=== PATIENT | male | born 1980 | race Caucasian/White ===

== ENCOUNTER 2017-12-04 21:05 | Emergency (ER) | payer OTHER, SELFPAY ==
[2017-12-04 21:05] VITALS: BP 154/93; PULSE 94; RESP 18; TEMP 35.8; O2SAT 99; BMI 33.2
--- NOTE | 2017-12-04 22:09 | ED.DCSUM_ITS ---
- ER Visit Summary Date of Service: 12/04/17 Chief Complaint: Neck pain History of Present Illness: The patient is a 37 M presenting for evaluation secondary neck pain. Patient reports that he has been dealing with a respiratory illness. He reports that over the course last 2 weeks he had been dealing with cough and mild sore throat. Patient reports that he was seen in urgent care was given a Z-Roddy and initially got better. He started to develop some left-sided neck pain however and went back to urgent care and they gave him a prescription for another antibiotic. Patient states that the neck pain is present when he palpates and during the day, but seems to get completely better when he takes Advil. He denies any sore throat or difficulty swallowing. Denies any cough nausea vomiting diarrhea chills night sweats weight loss. He does endorse that it gives him somewhat of a headache. He denies any presence of rashes. Review of systems otherwise negative. Physical Examination: Vital signs are within normal limits, patient is afebrile. General: Patient is well-nourished well-developed and in no acute distress. Head: Normocephalic, atraumatic Eyes: Pupils equal round and reactive bilaterally, extra occular motion intact bialterally ENT: Moist mucous membranes, uvula somewhat swollen but no evidence of asymmetry or posterior fullness or exudates. Neck: Supple, no lymphadenopathy, no JVD, no meningismus, there is tenderness in the posterior chain on the left side with out palpable lymph nodes CVS: Heart regular rate and rhythm, no murmurs, rubs or gallops, radial pulses 2+ bilaterally Resp: Respirations nondistressed, lung sounds clear bilaterally Abdomen: Soft, nontender, nondistended, no palpable masses, normal bowel sounds Back: Nontender Extremities: Nontender, atraumatic, active full range of motion, no peripheral edema Skin: warm, no rashes, no petechia Neuro: Alert and oriented x 4, CN 2-12 intact, no lateralizing neurological defecits Psyc: Normal affect Test Results: None indicated Emergency Department Course and Treatment: Patient presented for evaluation secondary to neck pain. His pain seems to be over where his posterior chain lymph nodes would be but I do not actually palpate any swollen nodes. He has no evidence of LaMere syndrome, Matt angina, meningitis, skin abscess, peritonsillar abscess, or other serious etiology at this point. My best explanation for this is that he potentially has a small swollen lymph node from his recent infection and that is causing him pain. He was recommended to continue taking anti-inflammatories as this seems to help Disposition: Discharge Impression: 1. Left posterior cervical lymph node pain This note was generated with [employer] dictation software. It may contain incorrect words, spelling, and punctuation that were not noted in review of the chart prior to signing ED Disposition - Plan for ED Patient: Disposition: Home or Assisted Living Chief Complaint: Other, Pain/Inj Diagnosis: Lymphadenopathy Instructions: ED Cervical Adenitis No Abx Tx Referrals: Care Physician,No Primary [Primary Care Provider] -
== END 2017-12-04 22:13 | disposition home or self-care (01) ==
PROVIDERS: Emergency Provider Emergency Medicine
DX: M54.2 Cervicalgia (principal); R51 Headache; R53.83 Other fatigue
CPT/HCPCS: 99282

== ENCOUNTER → 2018-04-20 12:33 | Outpatient (CLI) | payer OTHER, SELFPAY ==
[2018-04-20 15:02] LABS: Anion Gap 7 (5-15); BUN 15 mg/dL (7-18); BUN/Creat Ratio 13.5 RATIO (10-20); Chloride 106 mmol/L (98-107); Creatinine, Serum 1.11 mg/dL (0.70-1.30); EST Glomerular Filtration Rate 80 mL/min (>60); Est Glom Filt Rate - Afr Amer 96 mL/min (>60); Glucose 83 mg/dL (74-106); Potassium 4.4 mmol/L (3.5-5.1); Sodium Level 141 mmol/L (136-145); Uric Acid 5.1 mg/dL (3.5-7.2)
== END ==
PROVIDERS: Family Provider Family Medicine; PCP Family Medicine; Referring Provider Family Medicine; Visit Provider Family Medicine
DX: M79.89 Other specified soft tissue disorders (principal)
CPT/HCPCS: 36415; 80048; 84550

== ENCOUNTER → 2019-02-14 10:32 | Outpatient (CLI) | payer OTHER, SELFPAY ==
[2019-02-14 10:27] VITALS: BMI 33.2
--- NOTE | 2019-02-14 10:33 | RAD_ITS ---
STUDY: X-RAY CHEST REASON FOR EXAM: Male, 38 years old. pt. states he has had left sided chest pain for 1 month, comes and goes TECHNIQUE: PA and lateral views of the chest. COMPARISON: Comparison is made with prior examination dated July 22, 2016. FINDINGS: The lungs are clear and expanded. Scattered calcified granulomas. There is no demonstrated pleural abnormality. Normal size heart. Normal mediastinum and reyes. Normal visualized pulmonary arteries. Normal visualized aortic arch and descending thoracic aorta. Normal visualized thoracic spine. Normal visualized ribs, clavicles, and shoulders. There is no demonstrated abnormality of the visualized soft tissue structures of the upper abdomen. RAD/Chest PA and Lateral IMPRESSION: Normal x-ray examination of the chest. Electronically Signed: Jamar Hooper, at 10:51 EST , Service support ,
== END ==
PROVIDERS: Family Provider Family Medicine; PCP Family Medicine; Referring Provider Physician Assistant Surgical; Visit Provider Physician Assistant Surgical
DX: R07.89 Other chest pain (principal)
CPT/HCPCS: 71046

== ENCOUNTER 2020-08-21 21:01 | Emergency (ER) | payer OTHER, SELFPAY ==
[2019-02-14 10:27] VITALS: BMI 33.2
[2020-08-21 21:02] VITALS: BP 109/64; PULSE 89; RESP 15; TEMP 36.4; O2SAT 98; BMI 30.1
--- NOTE | 2020-08-21 22:29 | EDS_ITS ---
HPI History of Present Illness Chief Complaint: Laceration Detail of Chief Complaint: Laceration to right leg that occurred approximately 9:15 PM tonight Informant: patient Narrative Narrative: Patient was trying to move a lawnmower when he slipped and fell and accidentally lacerated his leg against the back end of the mower. Patient was able to ambulate afterwards. He is unsure of his last tetanus. No significant medical history. [facility] Medical History (Updated 08/21/20 @ 22:[address] Mick Mack, DO) Arthritis Asthma Pericarditis Shoulder pain Home Medications cephalexin 500 mg PO Q8H #21 capsule 08/21/20 [Rx Last Taken Unknown] Allergy/AdvReac Type Severity Reaction Status Date / Time Penicillins Allergy Rash Verified 08/21/20 21:05 Surgical History History of hernia surgery Hx of shoulder surgery Social History (Updated 02/14/19 @ 10:56 by Terry DENNIS, JEANNIE) Smoking Status: Never smoker alcohol intake: never substance use type: does not use caffeine: Yes what type of physical activity do you participate in: walking seatbelt use: always do you feel safe at home: Yes ROS ROS ED Constitutional Constitutional ED: Reports systems reviewed and no addt'l complaints, except as documented; Denies body ache(s), change in weight or chills Eyes Eyes: Denies acute decrease in peripheral vision, change in vision, double vision or loss of vision ENT ENT ED: Reports none; Denies ear pain, lip swelling, loss taste/smell, neck pain, otalgia or sore throat Cardiovascular Cardiovascular: Reports none; Denies abdominal pain, chest pain with activity, leg edema, lightheadedness, palpitations, rapid heart rate or syncope Respiratory/Chest Respiratory/Chest: Reports none; Denies change in mental status, dry cough, dyspnea, hemoptysis, shortness of breath at rest or shortness of breath with exertion Gastrointestinal Gastrointestinal: Reports none; Denies abdominal pain, change in stool character, diarrhea, hematemesis, hematochezia, melena, rectal bleeding or vomiting Genitourinary Genitourinary ED: Reports none; Denies abdominal discomfort, anuria, dysuria, genital pain or polyuria Musculoskeletal Musculoskeletal: Reports none; Denies arthralgias, back pain, difficulty walking, extremity pain, muscle weakness or myalgias Integumentary Reports none and other Details: Laceration to right leg ; Denies abscess or rash Neurologic Neurologic: Reports none; Denies abnormal gait, confusion, focal weakness, frequent falls, headache(s), loss of vision, numbness, paresthesias, radicular pain, vertigo or weakness Psychiatric Psychiatric: Reports systems reviewed and no addt'l complaints, except as docum ented and none; Denies behavioral changes, confusion, difficulty concentrating, hallucinations, suicidal ideation, tactile hallucinations or visual hallucinations Endocrine Endocrinology: Denies none, cold intolerance, excessive sweating, fatigue or heat intolerance Hematologic/Lymphatic Hematologic/Lymphatic: Reports none; Denies anemia, easy bleeding or easy bruising Allergic/Immunologic Allergic/Immunologic ED: Denies as per HPI, none, lip swelling, mouth swelling, throat swelling, tongue swelling or hives EXAM Physical Exam Const Vital Signs: 08/21/20 21:02 Temperature 97.5 F L Temperature Source Temporal Pulse Rate 89 Respiratory Rate 15 Blood Pressure 109/64 Blood Pressure Mean 79 Pulse Ox 98 Oxygen Delivery Method Room Air Positive well nourished and well developed General Appearance ED: well developed and NAD HEENT Reports TM's clear and moist mucous membranes normocephalic and atraumatic; Negative for trauma or tenderness Tympanic Membrane ED: Yes TM's clear Eyes PERRL and EOMs intact bilaterally General Eye ED: Negative for pale conjunctiva or scleral icterus Neck no lymphadenopathy, supple and no JVD General: Negative for tenderness Chest Wall inspection of chest normal and palpation of chest normal Chest: Negative for tenderness Resp normal respiratory effort and clear to auscultation bilaterally Effort and Inspection: Negative for respiratory distress or pain with movement Auscultation: Negative for rhonchi, wheezes or diminished lung sounds Cardio regular rate, regular rhythm, S1 normal heart sound, S2 normal heart sound and no murmurs Peripheral Pulses: pulses 2+ throughout GI normal to inspection, nondistended, normoactive bowel sounds, soft to palpation, non-tender, non-distended and no masses Back/Spine no CVA tenderness and no thoracic nor lumbar tenderness Extremity normal to inspection Extremity Narrative: Patient has a 3.5 cm laceration over the right anterior tibia distal third. Patient has normal range of motion of his toes and foot. No significant active bleeding at this time. No foreign body noted within the wound. General Extremety ED: Negative for edema General Extremity: Negative for edema Neuro oriented x3, CN's II-XII intact bilaterally, no sensory deficits noted and gait normal Sensorium / Orientation: awake, alert, oriented to person, oriented to place and oriented to time Motor Exam: strength 5/5 throughout and strength abnormal Psych mental status grossly normal Skin no rashes or lesions noted and no wounds MDM MDM MDM Narrative Medical decision making narrative: Patient consented for laceration repair. After repair clean dressing applied. Patient to follow-up with primary care physician chief information officer for no doc in 10 days for suture removal. Patient to return if increased pain, redness, swelling, or purulent drainage. Patient will be started on Keflex for 7 days. Procedures Lacerations 3.5 cm laceration right leg: Length: 1.38 in Depth: Sub Q Shape: Linear Prep: Sterile Conditions Laceration repair: Lidocaine and Local Irrigated (ml): 100 Number of Sutures/Ginny: 7 Suture Information: Ethilon and 4-0 Comment: Wound sterilely draped and prepped. Wound cleansed with Shur- Clens and irrigated with copious saline. It appears that the laceration does go to the epimysium of the tibialis anterior muscle but does not seem to enter the muscle. Using 4-0 nylon a total of 7 single erupted sutures placed with good wound edge approximation. Patient tolerated procedure well. Discharge Plan Triage Chief Complaint: Laceration ED Provider: Mick Mack Dx/Rx/DC Orders Clinical Impression: Laceration of right lower extremity Instructions: ED Laceration: All Closures Prescriptions: New cephalexin [cephalexin] 500 MG capsule 500 mg PO Q8H Qty: 21 RF: 0 Primary Care Provider: Homero Dowling Referrals: Homero Dowling MD [Primary Care Provider] - 10 Day for suture removal Disposition Disposition: Home, Self Care
[2020-08-21] MEDS: Cephalexin 250 MG Capsule 500 MG PO (22:51)
[2020-08-21] MEDS: Lidocaine 1% (20 ml mdv) 20 ML Vial 8 ML INFILT (22:51)
[2020-08-21] MEDS: Diphth,Pertuss(Acell),Tet Vac 0.5 ML Vial IM (22:51)
[2020-08-21 22:58] VITALS: BP 130/70; PULSE 70; RESP 18; O2SAT 96
== END 2020-08-21 23:01 | disposition home or self-care (01) ==
LOC: ED 22:38
PROVIDERS: Emergency Provider Emergency Medicine
DX: S81.811A Laceration without foreign body, right lower leg, initial encounter (principal); W26.8XXA Contact with other sharp object(s), not elsewhere classified, initial encounter; Y93.9 Activity, unspecified; Y92.9 Unspecified place or not applicable; M19.90 Unspecified osteoarthritis, unspecified site; J45.909 Unspecified asthma, uncomplicated
CPT/HCPCS: 12002; 90471; 90715; 99284

== ENCOUNTER 2020-09-26 01:16 | Emergency (ER) | payer OTHER, SELFPAY ==
[2020-09-26 01:17] VITALS: BP 156/90; PULSE 88; RESP 17; TEMP 36.8; O2SAT 99; BMI 29.8
--- NOTE | 2020-09-26 01:43 | EDS_ITS ---
HPI HPI - URI History of Present Illness Chief Complaint: Sore Throat Informant: patient Onset/Context/Timing Onset: Days (3-4) Context: Gradual Onset Timing: Continuous Quality: sore Location: throat, a little more on left Current Severity: Severe Maximum Severity: Severe Worsened by: Swallowing Relieved by: - (nothing) Associated Symptoms Associated Symptoms: Positive for Myalgias and Nonproductive cough Narrative Narrative: Patient was diagnosed with Covid recently, he states he has been breathing fine but his throat hurts so bad that he is having trouble sleeping and he would like to know if we can do anything for it. 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 He denies any exposure to anyone with strep throat that he knows of lately. ROS ROS ED Constitutional Constitutional ED: Reports fever(s) and subjective; Denies chills Eyes Eyes: Denies change in vision or diplopia ENT ENT ED: Reports as per HPI and sore throat; Denies change in voice, hoarseness, loss taste/smell or rhinorrhea Cardiovascular Cardiovascular: Denies chest pain or palpitations Respiratory/Chest Respiratory/Chest: Reports cough; Denies dyspnea Gastrointestinal Gastrointestinal: Denies abdominal pain, diarrhea, nausea or vomiting Genitourinary Genitourinary ED: Denies dysuria or hematuria Musculoskeletal Musculoskeletal: Denies back pain or neck pain Integumentary Denies abscess or rash Neurologic Neurologic: Denies headache(s), paresthesias or weakness Psychiatric Psychiatric: Denies anxiety or suicidal thoughts [facility] Medical History (Updated 09/26/20 @ 03:[address] Aleks Smith MD) Arthritis Asthma Pericarditis Shoulder pain Home Medications tramadol 50 mg PO Q4H PRN PRN 1 Days #6 tab 09/26/20 [Rx Last Taken Unknown] Allergy/AdvReac Type Severity Reaction Status Date / Time Penicillins Allergy Rash Verified 09/26/20 01:18 Surgical History History of hernia surgery Hx of shoulder surgery Social History Smoking Status: Never smoker alcohol intake: never substance use type: does not use caffeine: Yes what type of physical activity do you participate in: walking seatbelt use: always do you feel safe at home: Yes EXAM Physical Exam Const Vital Signs: 09/26/20 01:17 Temperature 98.2 F Temperature Source Temporal Pulse Rate 88 Respiratory Rate 17 Blood Pressure 156/90 H Blood Pressure Mean 112 Pulse Ox 99 Oxygen Delivery Method Room Air Positive well nourished and well developed General Appearance ED: well developed and NAD HEENT Reports moist mucous membranes HEENT Narrative: Erythematous posterior oropharynx. No trismus. No tonsillar edema/asymmetry, no mass-effect. Uvula midline. No exudates. normocephalic and atraumatic Eyes PERRL and EOMs intact bilaterally Neck full ROM and supple Resp normal respiratory effort and clear to auscultation bilaterally Extremity normal to inspection General Extremety ED: Negative for edema, pulses abnormal or tenderness General Extremity: Negative for edema or pulses abnormal Neuro oriented x3, CN's II-XII intact bilaterally and no sensory deficits noted Sensorium / Orientation: awake and alert Motor Exam: strength 5/5 throughout Skin no rashes or lesions noted and no wounds MDM MDM MDM Narrative Medical decision making narrative: Rapid strep was performed and came back negative. Culture sent. I treated him with dexamethasone 8 mg, I think this may help his pain and sensation of swelling. I do not think at this time he needs a CT for further evaluation, his throat looks well and his airway is intact without any signs or symptoms of impending airway issues. I think this is all probably related to Covid, and maybe the Decadron will help. He is comfortable with this overall plan to continue isolating and we discussed reasons to return. Lab Data Attestation: I reviewed the patient's lab results. Discharge Plan Triage Chief Complaint: Sore Throat ED Provider: Aleks Smith Dx/Rx/DC Orders Clinical Impression: Pharyngitis, COVID-19 Instructions: Coronavirus Disease 2019 (COVID-19): Caring for Yourself or Others, ED Pharyngitis, Viral Prescriptions: New tramadol 50 MG tablet 50 mg PO Q4H PRN PRN (Reason: Pain) 1 Days Qty: 6 RF: 0 Primary Care Provider: Care Physician,No Primary Referrals: Katie Ortiz, [STAFF PHYSICIAN] - As Needed Care Physician,No Primary [Primary Care Provider] - Disposition Disposition: Home, Self Care
[2020-09-26] MEDS: dexAMETHasone 4 MG Tablet 8 MG PO (02:02)
[2020-09-26 03:16] VITALS: BP 144/63; PULSE 68; RESP 18; O2SAT 97
== END 2020-09-26 03:17 | disposition home or self-care (01) ==
PROVIDERS: Emergency Provider Emergency Medicine
DX: J02.9 Acute pharyngitis, unspecified (principal); U07.1 COVID-19; M19.90 Unspecified osteoarthritis, unspecified site; J45.909 Unspecified asthma, uncomplicated; Z86.79 Personal history of other diseases of the circulatory system
CPT/HCPCS: 87880; 99283

== ENCOUNTER 2020-09-26 18:00 | Outpatient (CLI) | payer OTHER, SELFPAY ==
[2020-09-26] MEDS: 0.9% Saline Lock 10 ML Syringe IV (18:15)
[2020-09-26 18:17] VITALS: BP 128/83; PULSE 86; RESP 16; TEMP 36.8; O2SAT 98; BMI 29.5
[2020-09-26 18:50] VITALS: BP 126/80; PULSE 83; RESP 20; TEMP 36.7; O2SAT 99
[2020-09-26 19:50] VITALS: BP 132/79; PULSE 81; RESP 16; TEMP 36.7; O2SAT 98
== END 2020-09-26 19:54 | disposition home or self-care (01) ==
LOC: ICUOUT 18:04 → ICU 18:05
PROVIDERS: Visit Provider Nurse Practitioner Acute Care
DX: Z23 Encounter for immunization (principal); U07.1 COVID-19
CPT/HCPCS: J7050; M0243; A4216; Q0244

== ENCOUNTER → 2020-10-16 10:42 | Outpatient (CLI) | payer OTHER, SELFPAY ==
[2020-10-16 12:02] LABS: Absolute Lymphocyte Count 1.26 X10^3/uL (0.83-4.51); Absolute Neutrophil Count 3.1 X10^3/uL (2.0-7.7); Basophil# 0.05 X10^3/uL; Basophil% 0.9 % (0-1); Eosinophil# 0.38 X10^3/uL; Eosinophils% 7.2 % (0-5); Hematocrit 44.8 % (40-54); Hemoglobin 15.3 g/dL (13.0-16.5); Lymphocyte # 1.26 X10^3/ul (0.83-4.51); Lymphocyte % 23.9 % (19-41); Mean Corp Hgb Conc 34.2 g/dL (32-36); Mean Corpuscular Hgb 30.5 pg (27.0-32.0); Mean Corpuscular Volume 89.2 fL (80-94); Mean Platelet Vol. 9.9 fl (6.2-12.0); Monocyte# 0.44 X10^3/uL; Monocyte% 8.3 % (0-10); NRBC Flagged by Analyzer 0 % (0-5); Neutrophil # 3.13 X10^3/uL (2.7-7.7); Neutrophil % 59.3 % (47-70); Platelet Count 247 K/mm3 (150-450); RBC Distribution Width CV 12.4 % (11.6-14.6); Red Blood Count 5.02 M/mm3 (4.6-6.2); White Blood Count 5.3 K/mm3 (4.4-11.0)
[2020-10-16 12:33] LABS: D-Dimer Quantitative (DVT/PE) <= 0.27 FEU/ug/m (0.27-0.49)
[2020-10-16 12:52] LABS: Anion Gap 4 (5-15); BUN 13 mg/dL (7-18); BUN/Creat Ratio 12.7 RATIO (10-20); Chloride 105 mmol/L (98-107); Creatinine, Serum 1.02 mg/dL (0.70-1.30); EST Glomerular Filtration Rate 87 mL/min (>60); Est Glom Filt Rate - Afr Amer 105 mL/min (>60); Glucose 103 mg/dL (74-106); Potassium 4.2 mmol/L (3.5-5.1); Sodium Level 139 mmol/L (136-145); Troponin-I HS 6 pg/mL (3.0-78.0)
== END ==
PROVIDERS: PCP Family Medicine; Referring Provider Family Medicine; Visit Provider Family Medicine
DX: R07.89 Other chest pain (principal)
CPT/HCPCS: 36415; 80048; 84484; 85025; 85379

== ENCOUNTER 2024-08-05 23:11 | Emergency (ER) | payer OTHER, SELFPAY ==
--- NOTE | 2024-08-05 23:22 | EX.ED.DYSGE1 ---
HPI History of Present Illness Chief Complaint: Allergic Reaction Detail of Chief Complaint: Allergic reaction to peanut Informant: patient Narrative Narrative: Patient presents the emergency department with concern for allergic reaction to peanut butter. Patient states that he has known allergy but sometimes it does not bother him when he eats peanut butter. Has some discomfort in his throat. He took 50 mg of Benadryl at home. Patient denies itching or difficulty breathing. [facility] Medical History (Reviewed 09/26/20 @ 14:26 by Christy Vargas [employer]RBAN REDEVELOPMENT SPECIALIST, [employer]RBAN REDEVELOPMENT SPECIALIST-C) Arthritis Asthma Pericarditis Shoulder pain Home Medications ?Medication ?Instructions ?Recorded ?Last Taken ?Type epinephrine 0.3 mg/0.3 mL 0.3 mg (0.3 mL) IM Q10M PRN PRN 08/06/24 Unknown Rx injection, auto-injector (EpiPen) anaphylaxis #2 ea prednisone 20 mg tablet 20 mg PO BID #6 tabs 08/06/24 Unknown Rx Allergy/AdvReac Type Severity Reaction Status Date / Time peanut Allergy Swelling Verified 08/05/24 23:13 Penicillins Allergy Rash Verified 08/05/24 23:13 shellfish derived Allergy Anaphylaxis Verified 08/05/24 23:13 Surgical History (Reviewed 09/26/20 @ 14:26 by Christy Vargas URBAN REDEVELOPMENT SPECIALIST, URBAN REDEVELOPMENT SPECIALIST-C) History of hernia surgery Hx of shoulder surgery Social History (Updated 08/05/24 @ 23:35 by Laura Hagen) household members: spouse housing: house Smoking Status: Never smoker alcohol intake: never substance use type: does not use caffeine: Yes what type of physical activity do you participate in: walking seatbelt use: always do you feel safe at home: Yes ROS ROS ED ROS Narrative Allergic reaction Review of Systems ROS Unobtainable: other Constitutional Constitutional ED: Reports lethargy; Denies chills, fever(s), sweats or weight loss Eyes Eyes: Denies blurry vision, change in vision or diplopia ENT ENT ED: Reports other Details: Throat discomfort ; Denies rhinorrhea or sore throat Cardiovascular Cardiovascular: Denies chest pain, orthopnea or racing heartbeat Respiratory/Chest Respiratory/Chest: Denies cough, dyspnea, dyspnea on exertion, orthopnea or sputum Gastrointestinal Gastrointestinal: Denies abdominal pain, diarrhea, nausea or vomiting Genitourinary Genitourinary ED: Denies dysuria, hematuria or urinary frequency Musculoskeletal Musculoskeletal: Denies arthralgias, back pain, myalgias or neck pain Integumentary Denies abscess, Abrasions or rash Neurologic Neurologic: Denies headache(s) or weakness Psychiatric Psychiatric: Denies anxiety, depression or suicidal thoughts Endocrine Endocrinology: Denies polydipsia, polyphagia or polyuria Hematologic/Lymphatic Hematologic/Lymphatic: Denies easy bleeding, easy bruising or lymphadenopathy Allergic/Immunologic Allergic/Immunologic ED: Denies mouth swelling, tongue swelling or urticaria EXAM Physical Exam Const Vital Signs: 08/05/24 23:34 08/05/24 23:34 08/05/24 23:35 Temperature 98.3 F 96.2 F L Temperature Source Oral Temporal Pulse Rate 80 78 93 Respiratory Rate 18 18 20 H Blood Pressure 139/88 H 138/98 H 139/88 H Blood Pressure Mean 105 111 105 Pulse Ox 98 98 100 Oxygen Delivery Method Room Air 08/06/24 00:11 Temperature Temperature Source Pulse Rate 80 Respiratory Rate 18 Blood Pressure 130/78 H Blood Pressure Mean 95 Pulse Ox 96 Oxygen Delivery Method Positive well nourished and well developed General Appearance ED: well developed and NAD HEENT Reports TM's clear and moist mucous membranes HEENT Narrative: No angioedema of the tongue or lips or oropharynx. No stridor. normocephalic and atraumatic; Negative for trauma or tenderness Tympanic Membrane ED: Yes TM's clear Eyes PERRL and EOMs intact bilaterally General Eye ED: Negative for pale conjunctiva or scleral icterus Neck no lymphadenopathy, supple and no JVD General: Negative for tenderness Chest Wall inspection of chest normal and palpation of chest normal Chest: Negative for tenderness Resp normal respiratory effort and clear to auscultation bilaterally Effort and Inspection: Negative for respiratory distress or pain with movement Auscultation: Negative for rhonchi, wheezes or diminished lung sounds Cardio regular rate, regular rhythm, S1 normal heart sound, S2 normal heart sound and no murmurs Peripheral Pulses: pulses 2+ throughout GI normal to inspection, nondistended, normoactive bowel sounds, soft to palpation, non-tender, non-distended and no masses Back/Spine no CVA tenderness and no thoracic nor lumbar tenderness Extremity normal to inspection General Extremety ED: Negative for edema General Extremity: Negative for edema Neuro oriented x3, CN's II-XII intact bilaterally, no sensory deficits noted and gait normal Sensorium / Orientation: awake, alert, oriented to person, oriented to place and oriented to time Motor Exam: strength 5/5 throughout and strength abnormal Psych mental status grossly normal Skin no rashes or lesions noted and no wounds MDM MDM MDM Narrative Medical decision making narrative: Patient presents with allergic reaction to peanuts. He has known allergy. Clinically looks well. There is no angioedema. No difficulty breathing and no rash. I did start an IV and patient started on Solu-Medrol 125 mg IV and was given Pepcid 20 mg IV. He had already taken 50 mg of Benadryl. He was observed in the department for almost 2 hours and his symptoms completely resolved and he feels well. I feel he can be safely discharged to home. Will write a prescription for EpiPen. Will write for prednisone for 3 more days. Advised to avoid peanuts and nuts in general. Advised return if increased lip or tongue swelling or difficulty breathing or condition should worsen anyway. Discharge Plan Triage Chief Complaint: Allergic Reaction ED Provider: Mick Mack Dx/Rx/DC Orders Clinical Impression: Allergic reaction to peanut Instructions: ED Food Allergy Prescriptions: New epinephrine [EpiPen] 0.3 mg/0.3 mL auto-injector 0.3 mg IM Q10M PRN PRN (Reason: anaphylaxis) Qty: 2 0RF Rx Instructions: for 2 doses prednisone 20 mg tablet 20 mg PO BID Qty: 6 0RF Primary Care Provider: Care Physician,No Primary Referrals: Homero Dowling MD [Med Staff - Active Staff] - As Needed Print Language: Kinyarwanda Disposition Disposition: Home, Self Care
--- OUTSIDE RECORDS SUMMARY | 2024-08-05 23:30 | XMS RPT_ITS | CCD ---
Author Organization [facility] Care Team Providers Care Negative Assembler Name Role Phone Keron Pat Bryant Unavailable Unavailable Pcp COMMERCIAL FISHING VESSEL OPERATOR, Tammy Primary Care Provider Unavailabl e Unavailable Primary Care Provider Unavailabl e SOL BOURGEOIS Referring Unavailable Mick Mack Attending Unavailable Homero Dowling Primary Care Unavailable Homero Dowling Primary Care Unavailable Provider, Ed Physician Attending Unavailab rodrigo Allergies Allergy Classification Reported Allergen(s) Allergy Type Date of Onset Reaction(s) Facility (1 source) penicillin drug allergy 1 [facility] Work Phone: (5 sources) Penicillins; Translations: [PENICILLINS] Propensity to adverse reactions 8 Rash [facility] (1 source) peanut allergenic extract Drug Allergy 5 [facility] (1 source) Penicillins Drug allergy (disorder) 5 [facility] (1 source) Shellfish Drug allergy (disorder) 5 [facility] Medications Completed/Discontinued Medications Medication Drug Class(es) Dates Sig (Normalized) Sig (Original) cephalexin 500 mg oral tablet (2 sources) Cephalosporin Antibacterial Start: 01-14-2016 End: 03-19-2016 take 1 tablet by mouth three times daily KEFLEX 500 MG CAPS One tablet by mouth three times daily CEPHALEXIN [id number] Cheri Nettles RN colchicine 0.6 mg oral tablet (4 sources) Start: 01-14-2016 End: 06-22-2016 take 1 tablet by mouth once daily COLCHICINE 0.6 MG TABS One tablet by mouth daily COLCHICINE [id number] Gurvinder Rudd MD FLUTICASONE-SALME TEROL AERO (2 sources) Corticosteroid, beta2-Adrenergic Agonist End: 03-27-2014 ADVAIR HFA AERO use two times a day as directed FLUTICASONE-SALME TEROL AERO [id number] Gurvinder Rudd MD ADVAIR HFA AERO use two times a day as directed FLUTICASONE-SALMETEROL AERO [id number] Yola Phillips indomethacin 25 mg oral capsule (4 sources) Nonsteroidal Anti-inflammatory Drug Start: 01-14-2016 End: 06-22-2016 take 1 tablet by mouth three times daily INDOMETHACIN 25 MG CAPS One tablet by mouth three times daily INDOMETHACIN [id number] Gurvinder Rudd MD MONTELUKAST SODIUM TABS (2 sources) Leukotriene Receptor Antagonist End: 03-27-2014 take 1 tablet by mouth once daily SINGULAIR TABS One tablet by mouth daily MONTELUKAST SODIUM TABS [id number] Gurvinder Rudd MD take 1 tablet by mouth once ruddy y SINGULAIR TABS One tablet by mouth daily MONTELUKAST SODIUM TABS [id number] Yola Phillips Omeprazole (3 sources) Proton Pump Inhibitor End: 02-05-2024 OMEPRAZOLE ORAL Indications: Allergic contact dermatitis due to plants, except food Take by mouth. 02/05/2024 Discontinued (Course of therapy completed) OMEPRAZOLE ORAL Indications: Allergic contact dermatitis due to plants, except food Take by mouth. Active OMEPRAZOLE ORAL Indications: Allergic contact dermatitis due to plants, except food Take by mouth. 0 Active pantoprazole 40 mg injection (2 sources) Proton Pump Inhibitor Start: 01-14-2016 End: 03-19-2016 take 1 tablet by mouth once daily PROTONIX 40 MG TBEC One tablet by mouth daily PANTOPRAZOLE SODIUM [id number] Cheri Nettles RN triamcinolone acetonide 1 mg/ml topical cream (3 sources) Corticosteroid Start: 11-08-2017 End: 02-05-2024 triamcinolone acetonide (KENALOG) 0.1 % cream Indications: Allergic contact dermatitis due to plants, except food Apply 1 application to affected area three times daily. Apply sparingly to area for rash/itching. 80 g 11/08/2017 02/05/2024 Discontinued (Course of therapy completed) Problems Active Problems Problem Classification Problem Date Documented Da te Episodic/Chronic Disorders of lipid metabolism (2 sources) Hyperlipidemia; Translations: [Hyperlipidemia, unspecified] Onset: 04-15-2014 Resolved: 01-16-2016 01-16-2016 Chronic Other injuries and conditions due to external causes (2 sources) Injury of right wrist; Translations: [Unspecified injury of right wrist, hand and finger(s), initial encounter] 06-28-2023 Episodic Other nutritional; endocrine; and metabolic disorders (1 source) Body mass index (BMI) 30.0-30.9, adult; Translations: [Body mass index (BMI) 30.0-30.9, adult] Onset: 01-16-2016 01-16-2016 Chronic Other upper respiratory infections (2 sources) Sore throat symptom; Translations: [Acute pharyngitis, unspecified] 02-05-2024 Episodic Past or Other Problems Problem Classification Problem Date Documented Date Episodic/Chronic Abdominal hernia (2 sources) Umbilical hernia; Translations: [Umbilical hernia without obstruction or gangrene] Onset: 04-20-2010 Resolved: 01-14-2016 04-20-2010 Episodic Abdominal pain (2 sources) Lower abdominal pain; Translations: [Lower abdominal pain, unspecified] Onset: 05-25-2010 Resolved: 01-14-2016 01-14-2016 Episodic Cardiac dysrhythmias (1 source) Palpitations; Translations: [Palpitations] Onset: 03-26-2014 03-26-2014 Episodic Fluid and electrolyte disorders (1 source) Hypokalemia; Translations: [Hypokalemia] Onset: 01-16-2016 01-16-2016 Episodic Other circulatory disease (1 source) Abnormal electrocardiogram [ECG] [EKG]; Translations: [Abnormal electrocardiogram [ECG] [EKG]] Onset: 01-16-2016 01-16-2016 Episodic Other injuries and conditions due to external causes (1 source) Unspecified injury of right wrist, hand and finger(s), initial encounter; Translations: [Wrist injury, right, initial encounter] Onset: 06-28-2023 Episodic Other lower respiratory disease (1 source) Dyspnea; Translations: [Shortness of breath] Onset: 03-26-2014 03-26-2014 Episodic Other nutritional; endocrine; and metabolic disorders (1 source) Body mass index (BMI) 29.0-29.9, adult; Translations: [Body mass index (BMI) 29.0-29.9, adult] Onset: 01-16-2016 03-19-2016 Episodic Viji-; endo-; and myocarditis; cardiomyopathy (1 source) Acute pericarditis; Translations: [Acute pericarditis, unspecified] Onset: 01-14-2016 01-14-2016 Episodic Unclassified (2 sources) FH: Hypertension; Translations: [Family history of ischemic heart disease and other diseases of the circulatory system] Resolved: 01-16-2016 03-27-2014 Episodic Results Test Name Value Interpretation Reference Range Facility [facility] 02-07-2024 CN Office Visit (UCTR) ---- RYAN MATTA ([id number]) 1980 M Date Time Provider Department 02/07/24 11:30 AM KAMINI TERESA [facility] During your visit today, we recorded the following information about you: Temperature Pulse Respiration Blood pressure 97.6 degrees 75/minute 16/minute 132/80 Weight 94 kg Kamini Teresa PA 02/07/2024 10:47 AM Signed This note was created using ArcMailriter. Subjective Ryan Matta is a 43 year old male. HPI 43-year-old male presents for sore throat. Patient has had a sore throat for the past 4 days. He states he just started getting cough and congestion today. No fevers. Still able to eat and drink. No vomiting or diarrhea. 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 Nobody sick at home. No other complaint. Has been taking Advil without much improvement in symptoms. PAST MEDICAL HISTORY Diagnosis Date Allergy, unspecified not elsewhere classified Unspecified asthma(493.90) No past surgical history on file. ALLERGIES Penicillins MEDICATIONS No prescriptions on file. FAMILY HISTORY Problem Relation Age of Onset Alcohol/Drug Father Alcohol/Drug Paternal Grandfather Asthma Maternal Grandfather Cancer Maternal Grandfather throat Prostate Cancer Maternal Grandfather Diabetes Mother Diabetes Maternal Grandmother Diabetes Maternal Aunt other (lymphoma [Other]) Unknown great uncle GI Sister crohn's Lipids Father Hypertension Father Seizures Father Stroke Maternal Grandfather Social History Tobacco Use Smoking status: Former Types: Cigarettes Smokeless tobacco: Never Substance Use Topics Alcohol use: No Drug use: No Review of Systems Constitutional: Negative for chills and fever. HENT: Positive for congestion and sore throat. Respiratory: Positive for cough. Negative for shortness of breath. Gastrointestinal: Negative for diarrhea and vomiting. Objective BP 132/80 Pulse 75 Temp 36.4 ?C (97.6 ?F) (Tympanic) Resp 16 Wt 94 kg (207 lb 3.2 oz) SpO2 99% Physical Exam Vitals and nursing note reviewed. Constitutional: General: He is not in acute distress. Appearance: Normal appearance. He is not toxic-appearing. HENT: Right Ear: Tympanic membrane and ear canal normal. Left Ear: Tympanic membrane and ear canal normal. Nose: Nose normal. Mouth/Throat: Mouth: Mucous membranes are moist. Pharynx: Uvula midline. Posterior oropharyngeal erythema present. Tonsils: 2+ on the right. 2+ on the left. Eyes: Conjunctiva/sclera: Conjunctivae normal. Cardiovascular: Rate and Rhythm: Normal rate and regular rhythm. Pulmonary: Effort: Pulmonary effort is normal. Breath sounds: Normal breath sounds. Lymphadenopathy: Cervical: No cervical adenopathy. Skin: General: Skin is warm and dry. Neurological: Mental Status: He is alert. Assessment and Plan ASSESSMENT/PLAN: 1. Sore throat - ICD9: 462, ICD10: J02.9 - suspect viral - Group A strep molecular testing negative - Discussed supportive care treatment with fluids, rest and analgesia. - The patient may also use warm salt water gargles, throat lozenges and/or OTC throat spray as needed. - STREP A MOLECULAR (POC) Diagnosis and treatment plan were discussed and questions were answered to the patient's satisfaction. Pt acknowledged understanding of concepts and follow up plan. Specific signs and symptoms that would indicate the need for higher level of care were discussed in detail warranting prompt ER evaluation. JEANNIE Kumar Allergies As of Date: 02/07/2024 Noted Allergy Reaction PENICILLINS 01/18/2008 2 - Rash Date Reviewed: 02/07/2024 Reviewed by: Carrol Taylor LPN - Fully Assessed Reason for Visit: Sore Throat [200] Cmt: ST x 4 days Primary Visit Diagnosis:Sore throat [J02.9] Order(s):STREP A MOLECULAR (POC) [[id number]] Order #: [id number]. #:[id number] Problem List As Of Date: 02/07/2024 (None) Encounter Status:Closed by KAMINI TERESA on 02/07/24 Normal [facility] STREP A MOLECULAR (POC)on Procedural Control Valid [facility] Strep A (POCT) Negative Negative [facility] CNOVon 02-05-2024 CNOV Office Visit (UCWSTR) ---- RYAN MATTA ([id number]) 1980 M Date Time Provider Department 02/05/24 2:15 PM GAY FELICIANO [facility] During your visit today, we recorded the following information about you: Temperature Pulse Respiration Blood pressure 97.8 degrees 74/minute 20/minute 129/82 Weight 92 kg Gay Feliciano APRN.CNP 02/05/2024 2:56 PM Signed CC: Patient presents with: Sore Throat: Headache, x 2 weeks Sore throat x 2 days HPI: Ryan Matta is a 43 year old male who presents to the office with complaint of sore throat for a few days. Symptoms are staying the same. Associated symptoms includes sore throat. Denies cough, wheezing, dyspnea, nausea, vomiting , and diarrhea. Treatments tried include nothing so far. with no relief of symptoms. Sick contacts: unknown. History of asthma, frequent episodes of bronchitis, chronic bronchitis, bronchiectasis or COPD: No Smoker: No Seasonal/environmen reshma allergies: yes, and has had headaches for two week relieved by motrin. The ROS is otherwise negative. The patient's pmh, medications, allergies, and past visits are reviewed. PHYSICAL EXAM: BP 129/82 Pulse 74 Temp 36.6 ?C (97.8 ?F) Resp 20 Wt 92 kg (202 lb 13.2 oz) SpO2 98% General appearance: alert, cooperative, pleasant, in no acute distress Head: Normocephalic Eyes: EOM's intact, conjunctiva pink and moist, no icterus, sclera white, non-injected Ears: Right ear: External ear/canal- Normal, TM - clear with good landmarks. Left ear: External ear/canal- Normal, TM - clear with good landmarks Oropharynx:mild erythema, without exudates present Heart: Negative. RRR without obvious murmur, gallop, or rubs. No ectopy. Lungs: clear to auscultation, without rales or wheeze, good air exchange ASSESSMENT/PLAN: 1. Sore throat - ICD9: 462, ICD10: J02.9 - STREP A MOLECULAR (POC) - neg Instructed to take zyrtec for a few weeks to see if this helps with the headache if not see a PCP. Viral at this time. Otc meds for symptoms . Potential red flag symptoms discussed with the patient. Reviewed appropriate action plan to take if red flag symptoms occur. Patient agreeable to treatment plan. Gay Feliciano APRN.SHREDDING MACHINE TENDER Allergies As of Date: 02/05/2024 Noted Allergy Reaction PENICILLINS 01/18/2008 2 - Rash Date Reviewed: 02/05/2024 Reviewed by: Gabby Parra LPN - Fully Assessed Reason for Visit: Sore Throat [200] Cmt: Headache, x 2 weeks Sore throat x 2 days Primary Visit Diagnosis:Sore throat [J02.9] Order(s):STREP A MOLECULAR (POC) [[id number]] Order #: [id number] #:[id number] Problem List As Of Date: 02/05/2024 (None) Medications Discontinued During This Encounter Prescriptions - OMEPRAZOLE ORAL (Discontinued) Take by mouth. - triamcinolone acetonide (KENALOG) 0.1 % cream (Discontinued) Reported on 06/28/2023 Encounter Status:Closed by GAY FELICIANO on 02/05/24 Normal [facility] STREP A MOLECULAR (POC)on Procedural Control Valid [facility] Strep A (POCT) Negative Negative [facility] CNOVon 06-28-2023 CNOV Office Visit (UCWSTR) ---- RYAN MATTA ([id number]) 1980 M Date Time Provider Department 06/28/23 9:45 AM SOL BOURGEOIS [facility] During your visit today, we recorded the following information about you: Temperature Pulse Respiration Blood pressure 97.3 degrees 67/minute 16/minute 122/80 Weight 88.7 kg Sol Bourgeois PA-C 06/28/2023 10:42 AM Signed This note was created using Petnet. Subjective Ryan Matta is a 43 year old male. HPI Did get some swelling and pain with certain movements of his fingers so came in for evaluation. He states he still able to have good range of motion but was just wanting to make sure it was not broken. He denies any other injuries. Review of Systems Constitutional: Negative. HENT: Negative. Respiratory: Negative. Cardiovascular: Negative. Gastrointestinal: Negative. Musculoskeletal: Right wrist pain All other systems reviewed and are negative. PAST MEDICAL HISTORY Diagnosis Date Allergy, unspecified not elsewhere classified Unspecified asthma(493.90) Current Outpatient Medications Medication Sig Dispense Refill OMEPRAZOLE ORAL Take by mouth. triamcinolone acetonide (KENALOG) 0.1 % cream Apply 1 application to affected area three times daily. Apply sparingly to area for rash/itching. (Patient not taking: Reported on 06/28/2023) 80 g 0 No current facility-administer ed medications for this visit. No past surgical history on file. FAMILY HISTORY Problem Relation Age of Onset Alcohol/Drug Father Alcohol/Drug Paternal Grandfather Asthma Maternal Grandfather Cancer Maternal Grandfather throat Prostate Cancer Maternal Grandfather Diabetes Mother Diabetes Maternal Grandmother Diabetes Maternal Aunt other (lymphoma [Other]) Unknown great uncle GI Sister crohn's Lipids Father Hypertension Father Seizures Father Stroke Maternal Grandfather Social History Tobacco Use Smoking status: Former Types: Cigarettes Smokeless tobacco: Never Substance Use Topics Alcohol use: No Drug use: No Objective BP 122/80 Pulse 67 Temp 36.3 ?C (97.3 ?F) (Tympanic) Resp 16 Wt 88.7 kg (195 lb 8.8 oz) SpO2 100% Physical Exam Vitals reviewed. Constitutional: Appearance: Normal appearance. HENT: Head: Normocephalic and atraumatic. Musculoskeletal: Comments: Patient has ttp on the distal ulna dorsally with small abrasion, some swelling and bruising.Patient has full flexion and extension as well as pronation and supination. He does have pain in the wrist with range of motion of the fingers. Normal hand grasp strength. Radial pulse 2+. Normal distal sensation. Skin: General: Skin is warm and dry. Neurological: Mental Status: He is alert. Assessment and Plan ASSESSMENT/PLAN: 1. Wrist injury, right, initial encounter - ICD9: 959.3, ICD10: S69.91XA Patient xrays show no fractures of the wrist. There are some radiopaque densities over the mcp of the Right thumb. He had a laceration remotely over that area remotely. Likely retained foreign body. He has not had any issues with it. Recommended rest, ice, ibuprofen for his wrist. If not improving in 2 weeks follow-up with PCP. Patient agreeable. - XR WRIST INJURY 4V PA/LAT/OBL/SCAPH RIGHT Sol Bourgeois PA-C Allergies As of Date: 06/28/2023 Noted Allergy Reaction PENICILLINS 01/18/2008 2 - Rash Date Reviewed: 06/28/2023 Reviewed by: Carrol Taylor LPN - Fully Assessed Reason for Visit: right wrist pain [Other] Cmt: Hit wrist with a hammer yesterday Primary Visit Diagnosis:Wrist injury, right, initial encounter [S69.91XA] Order(s):XR WRIST INJURY 4V PA/LAT/OBL/SCAPH RIGHT [[id number]] Order #: [id number] FUTURE Prescriptions as of 06/28/2023 - OMEPRAZOLE ORAL Take by mouth. - triamcinolone acetonide (KENALOG) 0.1 % cream Apply 1 application to affected area three times daily. Apply sparingly to area for rash/itching. Problem List As Of Date: 06/28/2023 (None) Encounter Status:Closed by SOL BOURGEOIS on 06/28/23 Normal [facility] XR WRIST 4V PA/LAT/OBL/SCAPH RTon 06-28-2023 XR WRIST 4V PA/LAT/OBL/SCAPH RT * * *Final Report* * * DATE OF EXAM: Jun 28 2023 10:17AM WOX 5273 - XR WRIST 4V PA/LAT/OBL/SCAPH RT / PROCEDURE REASON: Wrist injury, right, initial encounter * * * * Physician Interpretation * * * * TITLE: XR WRIST 4V PA/LAT/OBL/SCAPH RT CLINICAL INDICATION: Injury TECHNIQUE: 4 view radiographic study of the right wrist COMPARISON: None FINDINGS: No acute fracture or dislocation identified. Joint spaces preserved. Punctate radiodensities adjacent to the first metacarpal head. IMPRESSION: 1. No radiographic evidence of acute osseous injury. 2. Punctate radiodensities adjacent to the first metacarpal head. Clinical correlation requested. Compensator Worker: MATILDE Transcribe Date/Time: Jun 28 2023 10:18A Dictated by : ELLY GUILLERMO MD This examination was interpreted and the report reviewed and electronically signed by: ELLY GUILLERMO MD on Jun 28 2023 10:20AM EST [id number] Normal [facility] XR Wrist - right 4 Viewson 0 06-28-2023 IMPRESSION: 1. No radiographic evidence of acute osseous injury. 2. Punctate radiodensities adjacent to the first metacarpal head. Clinical correlation requested. Compensator Worker: [facility] Transcribe Date/Time: Jun 28 2023 10:18A Dictated by : ELLY GUILLERMO MD This examination was interpreted and the report reviewed and electronically signed by: ELLY GUILLERMO MD on Jun 28 2023 10:20AM EST DIVISION OF RADIOLOGY * * *Final Report* * * DATE OF EXAM: Jun 28 2023 10:17AM WOX 5273 - XR WRIST 4V PA/LAT/OBL/SCAPH RT / PROCEDURE REASON: Wrist injury, right, initial encounter * * * * Physician Interpretation * * * * TITLE: XR WRIST 4V PA/LAT/OBL/SCAPH RT CLINICAL INDICATION: Injury TECHNIQUE: 4 view radiographic study of the right wrist COMPARISON: None FINDINGS: No acute fracture or dislocation identified. Joint spaces preserved. Punctate radiodensities adjacent to the first metacarpal head. DIVISION OF RADIOLOGY Provider, [facility] [place] - 06/28/2023 * * *Final Report* * * DATE OF EXAM: Jun 28 2023 10:17AM WOX 5273 - XR WRIST 4V PA/LAT/OBL/SCAPH RT / PROCEDURE REASON: Wrist injury, right, initial encounter * * * * Physician Interpretation * * * * TITLE: XR WRIST 4V PA/LAT/OBL/SCAPH RT CLINICAL INDICATION: Injury TECHNIQUE: 4 view radiographic study of the right wrist COMPARISON: None FINDINGS: No acute fracture or dislocation identified. Joint spaces preserved. Punctate radiodensities adjacent to the first metacarpal head. IMPRESSION IMPRESSION: 1. No radiographic evidence of acute osseous injury. 2. Punctate radiodensities adjacent to the first metacarpal head. Clinical correlation requested. Compensator Worker: MATILDE Transcribe Date/Time: Jun 28 2023 10:18A Dictated by : ELLY GUILLERMO MD This examination was interpreted and the report reviewed and electronically signed by: ELLY GUILLERMO MD on Jun 28 2023 10:20AM EST [facility] Radiology Study observation (narrative) [facility] XR Wrist - right 4 ViewsOrde red By: [facility] Provider on 06-28-2023 [facility] Office Visiton 06-22-2016 Documentation of current medications (procedure) Done Invalid Interpretation Code [employer] [facility] Work Phone: Documentation of current medications (procedure) T Invalid Interpretation Code [employer] [facility] Work Phone: Fall risk assessment Fall risk assessment Invalid Interpretation Code [employer] Work Phone: Office Visit: [facility] 03-19-19 Dietary management education, guidance, and counseling (procedure) yes Invalid Interpretation Code [facility] Work Phone: [phone] Office Visiton 01-16-2016 Tobacco use [facility] Former smoker Invalid Interpretation Code [facility] Work Phone: [phone] Replaced Document: Brynn Pisano CG Observationson 01-16-2016 electrocardiogram interpretation Sinus Rhythm WITHIN NORMAL LIMITS Invalid Interpretation Code [facility] Work Phone: [phone] GE use only - for LinkLogic import when terms are not otherwise specified 386 ms Invalid Interpretation Code [facility] Work Phone: [phone] P wave axis, electrocardiogram 24 deg Invalid Interpretation Code [facility] Work Phone: [phone] NH interval, electrocardiogram 146 ms Invalid Interpretation Code [facility] Work Phone: [phone] Pulse (Heart Rate) 66 /min Invalid Interpretation Code [facility] Work Phone: [phone] QRS axis, electrocardiogram 13 deg Invalid Interpretation Code [facility] Work Phone: [phone] QRS duration, electrocardiogram 78 ms Invalid Interpretation Code [facility] Work Phone: [phone] QT interval, electrocardiogram new path ms Invalid Interpretation Code [facility] Work Phone: [phone] T wave axis, electrocardiogram 33 deg Invalid Interpretation Code [facility] Work Phone: [phone] Clinical Lists Update: Prelo exit booth agent 01-14-2016 Left ventricular Ejection fraction 60 % Invalid Interpretation Code [facility] Work Phone: [phone] Lab Report: Lipid Profileon 04-12-2014 Cholesterol 216 mg/dL Critically high 200 [facility] Work Phone: [phone] HDL Cholesterol 39 mg/dL Critically low [facility] Work Phone: [phone] LDL Cholesterol 164 mg/dL Critically high 0-[address] [facility] Work Phone: [phone] Triglyceride 67 mg/dL Invalid Interpretation Code 0-199 [facility] Work Phone: [phone] very low density lipoproteins 13 mg/dL Invalid Interpretation Code 5-40 [facility] Work Phone: [phone] Office Visiton 03-27-2014 cardiac risk group A Invalid Interpretation Code [facility] Work Phone: [phone] General cardiovascular disease 10Y risk [#] [place] Not enough information Invalid Interpretation Code [facility] Work Phone: Vital Signs Date Time Vital Sign Value Performing Clinician Facility 02-07-2024 10:27-0500 Body temperature 97.59 [degF] Krislyn Aberegg PA Work Phone: [facility] 02-07-2024 10:27-0500 Body weight 93.98 kg Krislyn Aberegg PA Work Phone: [facility] 02-07-2024 10:27-0500 Diastolic blood pressure 80 mm[Hg] Krislyn Aberegg PA Work Phone: [facility] 02-07-2024 10:27-0500 Heart rate 75 /min Krislyn Aberegg PA Work Phone: [facility] 02-07-2024 10:27-0500 Respiratory rate 16 /min Krislyn Aberegg PA Work Phone: [facility] 02-07-2024 10:27-0500 SaO2% (BldA) [Mass fraction] 99 % Krislyn Aberegg PA Work Phone: [facility] 02-07-2024 10:27-0500 Systolic blood pressure 132 mm[Hg] Krislyn Aberegg PA Work Phone: [facility] [facility] 02-05-2024 14:29-0500 Body temperature 97.81 [degF] Gay Feliciano APRN.SHREDDING MACHINE TENDER Work Phone: [facility] 02-05-2024 14:29-0500 Body weight 92 kg Gay Feliciano APRN.SHREDDING MACHINE TENDER Work Phone: [facility] 02-05-2024 14:29-0500 Diastolic blood pressure 82 mm[Hg] Gay Feliciano APRN.SHREDDING MACHINE TENDER Work Phone: [facility] 02-05-2024 14:29-0500 Heart rate 74 /min Gay Feliciano APRN.SHREDDING MACHINE TENDER Work Phone: [facility] 02-05-2024 14:29-0500 Respiratory rate 20 /min Gay Feliciano APRN.SHREDDING MACHINE TENDER Work Phone: [facility] 02-05-2024 14:29-0500 SaO2% (BldA) [Mass fraction] 98 % Gay Feliciano APRN.SHREDDING MACHINE TENDER Work Phone: [facility] 02-05-2024 14:29-0500 Systolic blood pressure 129 mm[Hg] Gay Feliciano APRN.SHREDDING MACHINE TENDER Work Phone: [facility] 06-28-2023 09:49-0400 Body temperature 97.3 [degF] Sol Athy PA-C Work Phone: [facility] 06-28-2023 09:49-0400 Body weight 88.7 kg Sol Athy PA-C Work Phone: [facility] 06-28-2023 09:49-0400 Diastolic blood pressure 80 mm[Hg] Sol Athy PA-C Work Phone: [facility] 06-28-2023 09:49-0400 Heart rate 67 /min Sol Athy PA-C Work Phone: [facility] 06-28-2023 09:49-0400 Respiratory rate 16 /min Sol Athy PA-C Work Phone: [facility] 06-28-2023 09:49-0400 SaO2% (BldA) [Mass fraction] 100 % Sol Athy PA-C Work Phone: [facility] 06-28-2023 09:49-0400 Systolic blood pressure 122 mm[Hg] Sol Athy PA-C Work Phone: [facility] 06-22-2016 10:17-0400 BMI (Body Mass Index) 28.33 kg/m2 [facility] Work Phone: 06-22-2016 10:17-0400 BP Diastolic 70 mm[Hg] [facility] Work Phone: 06-22-2016 10:17-0400 BP Systolic 116 mm[Hg] [facility] Work Phone: 06-22-2016 10:17-0400 Height 181.61 cm [facility] Work Phone: 06-22-2016 10:17-0400 Pulse (Heart Rate) 64 /min [facility] Work Phone: 06-22-2016 10:17-0400 Respiratory Rate 20 /min [facility] Work Phone: 06-22-2016 10:17-0400 Weight 93.44 kg [facility] Work Phone: 03-19-2016 10:54-0500 BSA (Body Surface Area) 2.17 m2 [facility] Work Phone: 05-25-2010 12:57-0400 Body Temperature 98 [degF] [facility] Work Phone: 04-20-2010 13:48-0400 Body Temperature 97.59 [degF] [facility] Work Phone: 04-20-2010 13:48-0400 Height 181.61 cm [facility] Work Phone: 04-20-2010 13:48-0400 Weight 92.64 kg [facility] Work Phone: Encounters Encounter Date Encounter Type Care Provider Facility Start: 08-05-2024 ambulatory [facility] Facility:[facility] Start: 02-07-2024 End: 02-07-2024 Patient encounter procedure Kamini DENNIS Work Phone: [facility] Comment on above: Sore throat (Primary Dx) Start: 02-07-2024 End: 02-07-2024 ambulatory SOL ATHY Facility:[facility] Start: 02-05-2024 End: 02-05-2024 ambulatory SOL ATHY Facility:[facility] Start: 02-05-2024 End: 02-05-2024 Patient encounter procedure Gay Feliciano LEANDRA.SHREDDING MACHINE TENDER Work Phone: [facility] Comment on above: Sore throat (Primary Dx) Start: 06-28-2023 End: 06-28-2023 Subsequent hospital visit by physician Xr [facility] [place] Work Phone: Radiology Comment on above: Wrist injury, right, initial encounter [S69.91XA] Start: 06-28-2023 End: 06-28-2023 ambulatory SOL BOURGEOIS Facility:[facility] Start: 06-28-2023 End: 06-28-2023 Patient encounter procedure Sol Bourgeois PA-C Work Phone: [facility] Comment on above: Wrist injury, right, initial encounter (Primary Dx) Procedures Date Procedure Procedure Detail Performing Clinician Start: 02-07-2024 STREP A MOLECULAR (POC) Kamini P Abkane PA Work Phone: Start: 02-05-2024 STREP A MOLECULAR (POC) Morisn P Aberegg PA Work Phone: Start: 06-28-2023 Radex wrist complete minimum 3 views Sol Bourgeois PA-C Work Phone: Start: 06-22-2016 End: 06-22-2016 Follow Up Appt Other Gurvinder Rudd MD Start: 03-19-2016 End: 03-19-2016 GOVERNMENT SERVICE EXECUTIVE Farrah Stringer PA-C Work Phone: Start: 03-19-2016 End: 03-19-2016 Follow Up Appt 3 months Farrah gamboa PA-C Work Phone: Start: 01-16-2016 End: 01-16-2016 Electrocardiogram, complete Gurvinder Redding i, MD Start: 01-16-2016 End: 01-16-2016 Follow Up Appt 3 months Gloria Lee Start: 01-16-2016 End: 01-16-2016 MMM Gurvinder Rudd MD Start: 03-27-2014 End: 04-10-2014 24 hour holter monitor Gurvinder Rudd MD Start: 03-27-2014 End: 03-27-2014 GOVERNMENT SERVICE EXECUTIVE Gurvinder Rudd MD Start: 03-27-2014 End: 03-28-2014 Documentation of current medications Gurvinder Rudd MD Start: 03-27-2014 End: 04-01-2014 Echocardiography Gurvinder Rudd MD Start: 03-27-2014 End: 03-27-2014 Follow up Appt 3 weeks Gurvinder Rudd MD Start: 03-27-2014 End: 04-12-2014 Lipid panel [AGGREGATE] Gloria Lee Plan of Treatment Date Care Activity Detail Author Start: 08-21-2030 Urine microalbumin profile DTaP,Tdap,Td Vaccine (3 - Td or Tdap) [facility] Start: 10-09-2023 Covid-19 Vaccine ( season) Covid-19 Vaccine () [facility] Start: 10-09-2023 Covid-19 Vaccine ( season) Covid-19 Vaccine ( season) [facility] Start: 10-09-2023 Influenza vaccination [facility] Start: 02-07-2023 Behavioral Health Screening Behavioral Health Screening [facility] Start: 10-08-2022 Covid-19 Vaccine ( season) Covid-19 Vaccine ( season) [facility] Start: 2017 Lipid panel Lipid Screening [facility] Start: 06-22-2016 End: 06-22-2016 Follow Up Appt Other Follow Up Appt Other [facility] Work Phone: Start: 03-19-2016 End: 03-19-2016 [facility] Work Phone: Start: 03-19-2016 End: 03-19-2016 Follow Up Appt 3 months Follow Up Appt 3 months [facility] Work Phone: Start: 01-16-2016 End: 01-16-2016 Electrocardiogram, complete EKG (In office) [facility] Work Phone: Start: 01-16-2016 End: 01-16-2016 Follow Up Appt 3 months Follow Up Appt 3 months [facility] Work Phone: Start: 01-16-2016 End: 01-16-2016 MMM MMM [facility] Work Phone: Start: 04-14-2015 End: 04-15-2014 *Hepatic Function Panel *Hepatic Function Panel [facility] Work Phone: Start: 04-14-2015 End: 04-15-2014 Lipid panel [AGGREGATE] *Lipid Profile CC PCP [facility] Work Phone: Start: 03-27-2014 End: 03-28-2014 24 hour holter monitor 24 hour holter monitor [facility] Work Phone: Start: 03-27-2014 End: 03-27-2014 [facility] GOVERNMENT SERVICE EXECUTIVE [facility] Work Phone: Start: 03-27-2014 End: 03-28-2014 Echocardiography Echocardiogram (complete) [facility] Work Phone: Start: 03-27-2014 End: 03-27-2014 Follow up Appt 3 weeks Follow up Appt 3 weeks [facility] Work Phone: Start: 03-27-2014 End: 04-12-2014 Lipid panel [AGGREGATE] *Lipid Profile CC PCP [facility] Work Phone: Start: 2001 Hepatitis B Vaccine (1 of 3 - 19+ 3-dose series) Hepatitis B Vaccine (1 of 3 - 19+ 3-dose series) [facility] Start: 2000 Anxiety Screening Anxiety Screening [facility] Start: 2000 Depression Screening Depression Screening [facility] Start: 2000 Hepatitis C screening Hepatitis C Screening [facility] Start: 2000 HIV screening HIV Screening [facility] Patient Education HYPERLIPIDEMIA [facility] Work Phone: Payers Date Payer Category Payer Self-pay 2018 Unknown [employer] PPO [id number] 2018-Present [phone] [address] [place] [address] PPO [id number] 2018 Unknown [id number] Unknown [id number] Unknown [id number] Social History Date Type Detail Facility Start: 06-28-[address] [facility] History of tobacco use Current smoker [facility] History of tobacco use Cigarette Smoker [facility] Start: 06-28-2023 Tobacco use and exposure Smoke less tobacco non-user [facility] Start: 06-28-2023 End: 02-07-2024 Alcohol intake Current non-drinker of alcohol (finding) [facility] Start: 01-15-2020 End: 06-28-2023 History of Social function [facility] Start: 01-15-2020 End: 06-28-2023 Tobacco use panel [facility] National Score (1-10 0), lower number is lower risk Not on file [facility] Start: 1980 Sex Assigned At Not on file [facility] Clinical Notes 06-28-2023 to 02-07-2024 Kamini Teresa PA - 02/07/2024 10:37 AM Gay Ayoub APRN.WALTER - 02/05/2024 2:36 PM Sol Presley PA-C - 06/28/2023 10:36 AM Ashley Fernandez RT(R) - 06/28/2023 10:10 AM EDT Note Date & Type Note Facility 02-07-2024 Note HNO ID: [id number] Author: KAMINI TERESA PA Service: ? Author Type: Physician Assembler Show Motor Type: Progress Notes Filed: 02/07/2024 10:47 Note Text: This note was created using [employer]. Vitor Matta is a 43 year old male. HPI 43-year-old male presents for sore throat. Patient has had a sore throat for the past 4 days. He states he just started getting cough and congestion today. No fevers. Still able to eat and drink. No vomiting or diarrhea. 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 Nobody sick at home. No other complaint. Has been taking Advil without much improvement in symptoms. PAST MEDICAL HISTORY Diagnosis Date Allergy, unspecified not elsewhere classified Unspecified asthma(493.90) No past surgical history on file. ALLERGIES Penicillins MEDICATIONS No prescriptions on file. FAMILY HISTORY Problem Relation Age of Onset Alcohol/Drug Father Alcohol/Drug Paternal Grandfather Asthma Maternal Grandfather Cancer Maternal Grandfather throat Prostate Cancer Maternal Grandfather Diabetes Mother Diabetes Maternal Grandmother Diabetes Maternal Aunt other (lymphoma [Other]) Unknown great uncle GI Sister crohn's Lipids Father Hypertension Father Seizures Father Stroke Maternal Grandfather Social History Tobacco Use Smoking status: Former Types: Cigarettes Smokeless tobacco: Never Substance Use Topics Alcohol use: No Drug use: No Review of Systems Constitutional: Negative for chills and fever. HENT: Positive for congestion and sore throat. Respiratory: Positive for cough. Negative for shortness of breath. Gastrointestinal: Negative for diarrhea and vomiting. Objective BP 132/80 Pulse 75 Temp 36.4 ?C (97.6 ?F) (Tympanic) Resp 16 Wt 94 kg (207 lb 3.2 oz) SpO2 99% Physical Exam Vitals and nursing note reviewed. Constitutional: General: He is not in acute distress. Appearance: Normal appearance. He is not toxic-appearing. HENT: Right Ear: Tympanic membrane and ear canal normal. Left Ear: Tympanic membrane and ear canal normal. Nose: Nose normal. Mouth/Throat: Mouth: Mucous membranes are moist. Pharynx: Uvula midline. Posterior oropharyngeal erythema present. Tonsils: 2+ on the right. 2+ on the left. Eyes: Conjunctiva/sclera: Conjunctivae normal. Cardiovascular: Rate and Rhythm: Normal rate and regular rhythm. Pulmonary: Effort: Pulmonary effort is normal. Breath sounds: Normal breath sounds. Lymphadenopathy: Cervical: No cervical adenopathy. Skin: General: Skin is warm and dry. Neurological: Mental Status: He is alert. Assessment and Plan ASSESSMENT/PLAN: 1. Sore throat - ICD9: 462, ICD10: J02.9 - suspect viral - Group A strep molecular testing negative - Discussed supportive care treatment with fluids, rest and analgesia. - The patient may also use warm salt water gargles, throat lozenges and/or OTC throat spray as needed. - STREP A MOLECULAR (POC) Diagnosis and treatment plan were discussed and questions were answered to the patient's satisfaction. Pt acknowledged understanding of concepts and follow up plan. Specific signs and symptoms that would indicate the need for higher level of care were discussed in detail warranting prompt ER evaluation. JEANNIE Kumar [facility] 02-07-2024 History of Present illness Narrative This note was created using [employer]. Subjective Ryan Matta is a 43 year old male. HPI 43-year-old male presents for sore throat. Patient has had a sore throat for the past 4 days. He states he just started getting cough and congestion today. No fevers. Still able to eat and drink. No vomiting or diarrhea. 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 Nobody sick at home. No other complaint. Has been taking Advil without much improvement in symptoms. PAST MEDICAL HISTORY Diagnosis Date Allergy, unspecified not elsewhere classified Unspecified asthma(493.90) No past surgical history on file. ALLERGIES Penicillins MEDICATIONS No prescriptions on file. FAMILY HISTORY Problem Relation Age of Onset Alcohol/Drug Father Alcohol/Drug Paternal Grandfather Asthma Maternal Grandfather Cancer Maternal Grandfather throat Prostate Cancer Maternal Grandfather Diabetes Mother Diabetes Maternal Grandmother Diabetes Maternal Aunt other (lymphoma [Other]) Unknown great uncle GI Sister crohn's Lipids Father Hypertension Father Seizures Father Stroke Maternal Grandfather Social History Tobacco Use Smoking status: Former Types: Cigarettes Smokeless tobacco: Never Substance Use Topics Alcohol use: No Drug use: No Review of Systems Constitutional: Negative for chills and fever. HENT: Positive for congestion and sore throat. Respiratory: Positive for cough. Negative for shortness of breath. Gastrointestinal: Negative for diarrhea and vomiting. Objective BP 132/80 Pulse 75 Temp 36.4 C (97.6 F) (Tympanic) Resp 16 Wt 94 kg (207 lb 3.2 oz) SpO2 99% Physical Exam Vitals and nursing note reviewed. Constitutional: General: He is not in acute distress. Appearance: Normal appearance. He is not toxic-appearing. HENT: Right Ear: Tympanic membrane and ear canal normal. Left Ear: Tympanic membrane and ear canal normal. Nose: Nose normal. Mouth/Throat: Mouth: Mucous membranes are moist. Pharynx: Uvula midline. Posterior oropharyngeal erythema present. Tonsils: 2+ on the right. 2+ on the left. Eyes: Conjunctiva/sclera: Conjunctivae normal. Cardiovascular: Rate and Rhythm: Normal rate and regular rhythm. Pulmonary: Effort: Pulmonary effort is normal. Breath sounds: Normal breath sounds. Lymphadenopathy: Cervical: No cervical adenopathy. Skin: General: Skin is warm and dry. Neurological: Mental Status: He is alert. Assessment and Plan ASSESSMENT/PLAN: 1. Sore throat - ICD9: 462, ICD10: J02.9 - suspect viral - Group A strep molecular testing negative - Discussed supportive care treatment with fluids, rest and analgesia. - The patient may also use warm salt water gargles, throat lozenges and/or OTC throat spray as needed. - STREP A MOLECULAR (POC) Diagnosis and treatment plan were discussed and questions were answered to the patient's satisfaction. Pt acknowledged understanding of concepts and follow up plan. Specific signs and symptoms that would indicate the need for higher level of care were discussed in detail warranting prompt ER evaluation. JEANNIE Kumar documented in this encounter [facility] 02-05-2024 Note HNO ID: [id number] Author: GAY FELICIANO APRN.WALTER Service: ? Author Type: Nurse Practitioner Type: Progress Notes Filed: 02/05/2024 14:56 Note Text: CC: Patient presents with: Sore Throat: Headache, x 2 weeks Sore throat x 2 days HPI: Ryan Matta is a 43 year old male who presents to the office with complaint of sore throat for a few days. Symptoms are staying the same. Associated symptoms includes sore throat. Denies cough, wheezing, dyspnea, nausea, vomiting , and diarrhea. Treatments tried include nothing so far. with no relief of symptoms. Sick contacts: unknown. History of asthma, frequent episodes of bronchitis, chronic bronchitis, bronchiectasis or COPD: No Smoker: No Seasonal/environmental allergies: yes, and has had headaches for two week relieved by motrin. The ROS is otherwise negative. The patient's pmh, medications, allergies, and past visits are reviewed. PHYSICAL EXAM: BP 129/82 Pulse 74 Temp 36.6 ?C (97.8 ?F) Resp 20 Wt 92 kg (202 lb 13.2 oz) SpO2 98% General appearance: alert, cooperative, pleasant, in no acute distress Head: Normocephalic Eyes: EOM's intact, conjunctiva pink and moist, no icterus, sclera white, non-injected Ears: Right ear: External ear/canal- Normal, TM - clear with good landmarks. Left ear: External ear/canal- Normal, TM - clear with good landmarks Oropharynx:mild erythema, without exudates present Heart: Negative. RRR without obvious murmur, gallop, or rubs. No ectopy. Lungs: clear to auscultation, without rales or wheeze, good air exchange ASSESSMENT/PLAN: 1. Sore throat - ICD9: 462, ICD10: J02.9 - STREP A MOLECULAR (POC) - neg Instructed to take zyrtec for a few weeks to see if this helps with the headache if not see a PCP. Viral at this time. Otc meds for symptoms . Potential red flag symptoms discussed with the patient. Reviewed appropriate action plan to take if red flag symptoms occur. Patient agreeable to treatment plan. Gay Feliciano APRN.[facility] 02-05-2024 History of Present illness Narrative CC: Patient presents with: Sore Throat: Headache, x 2 weeks Sore throat x 2 days HPI: Ryan Matta is a 43 year old male who presents to the office with complaint of sore throat for a few days. Symptoms are staying the same. Associated symptoms includes sore throat. Denies cough, wheezing, dyspnea, nausea, vomiting , and diarrhea. Treatments tried include nothing so far. with no relief of symptoms. Sick contacts: unknown. History of asthma, frequent episodes of bronchitis, chronic bronchitis, bronchiectasis or COPD: No Smoker: No Seasonal/environmental allergies: yes, and has had headaches for two week relieved by motrin. The ROS is otherwise negative. The patient's pmh, medications, allergies, and past visits are reviewed. PHYSICAL EXAM: BP 129/82 Pulse 74 Temp 36.6 C (97.8 F) Resp 20 Wt 92 kg (202 lb 13.2 oz) SpO2 98% General appearance: alert, cooperative, pleasant, in no acute distress Head: Normocephalic Eyes: EOM's intact, conjunctiva pink and moist, no icterus, sclera white, non-injected Ears: Right ear: External ear/canal- Normal, TM - clear with good landmarks. Left ear: External ear/canal- Normal, TM - clear with good landmarks Oropharynx:mild erythema, without exudates present Heart: Negative. RRR without obvious murmur, gallop, or rubs. No ectopy. Lungs: clear to auscultation, without rales or wheeze, good air exchange ASSESSMENT/PLAN: 1. Sore throat - ICD9: 462, ICD10: J02.9 - STREP A MOLECULAR (POC) - neg Instructed to take zyrtec for a few weeks to see if this helps with the headache if not see a PCP. Viral at this time. Otc meds for symptoms . Potential red flag symptoms discussed with the patient. Reviewed appropriate action plan to take if red flag symptoms occur. Patient agreeable to treatment plan. Gay Feliciano APRN.SHREDDING MACHINE TENDER documented in this encounter [facility] 06-28-2023 Note HNO ID: [id number] Author: SOL BOURGEOIS PA-C Service: ? Author Type: Physician Assembler Show Motor Type: Progress Notes Filed: 06/28/2023 10:42 Note Text: This note was created using ArcMailriter. Vitor Matta is a 43 year old male. HPI Did get some swelling and pain with certain movements of his fingers so came in for evaluation. He states he still able to have good range of motion but was just wanting to make sure it was not broken. He denies any other injuries. Review of Systems Constitutional: Negative. HENT: Negative. Respiratory: Negative. Cardiovascular: Negative. Gastrointestinal: Negative. Musculoskeletal: Right wrist pain All other systems reviewed and are negative. PAST MEDICAL HISTORY Diagnosis Date Allergy, unspecified not elsewhere classified Unspecified asthma(493.90) Current Outpatient Medications Medication Sig Dispense Refill OMEPRAZOLE ORAL Take by mouth. triamcinolone acetonide (KENALOG) 0.1 % cream Apply 1 application to affected area three times daily. Apply sparingly to area for rash/itching. (Patient not taking: Reported on 06/28/2023) 80 g 0 No current facility-administered medications for this visit. No past surgical history on file. FAMILY HISTORY Problem Relation Age of Onset Alcohol/Drug Father Alcohol/Drug Paternal Grandfather Asthma Maternal Grandfather Cancer Maternal Grandfather throat Prostate Cancer Maternal Grandfather Diabetes Mother Diabetes Maternal Grandmother Diabetes Maternal Aunt other (lymphoma [Other]) Unknown great uncle GI Sister crohn's Lipids Father Hypertension Father Seizures Father Stroke Maternal Grandfather Social History Tobacco Use Smoking status: Former Types: Cigarettes Smokeless tobacco: Never Substance Use Topics Alcohol use: No Drug use: No Objective BP 122/80 Pulse 67 Temp 36.3 ?C (97.3 ?F) (Tympanic) Resp 16 Wt 88.7 kg (195 lb 8.8 oz) SpO2 100% Physical Exam Vitals reviewed. Constitutional: Appearance: Normal appearance. HENT: Head: Normocephalic and atraumatic. Musculoskeletal: Comments: Patient has ttp on the distal ulna dorsally with small abrasion, some swelling and bruising.Patient has full flexion and extension as well as pronation and supination. He does have pain in the wrist with range of motion of the fingers. Normal hand grasp strength. Radial pulse 2+. Normal distal sensation. Skin: General: Skin is warm and dry. Neurological: Mental Status: He is alert. Assessment and Plan ASSESSMENT/PLAN: 1. Wrist injury, right, initial encounter - ICD9: 959.3, ICD10: S69.91XA Patient xrays show no fractures of the wrist. There are some radiopaque densities over the mcp of the Right thumb. He had a laceration remotely over that area remotely. Likely retained foreign body. He has not had any issues with it. Recommended rest, ice, ibuprofen for his wrist. If not improving in 2 weeks follow-up with PCP. Patient agreeable. - XR WRIST INJURY 4V PA/LAT/OBL/SCAPH RIGHT Sol Bourgeois PA-C [facility] 06-28-2023 History of Present illness Narrative This note was created using ArcMailriter. Subjective Ryan Matta is a 43 year old male. HPI Did get some swelling and pain with certain movements of his fingers so came in for evaluation. He states he still able to have good range of motion but was just wanting to make sure it was not broken. He denies any other injuries. Review of Systems Constitutional: Negative. HENT: Negative. Respiratory: Negative. Cardiovascular: Negative. Gastrointestinal: Negative. Musculoskeletal: Right wrist pain All other systems reviewed and are negative. PAST MEDICAL HISTORY Diagnosis Date Allergy, unspecified not elsewhere classified Unspecified asthma(493.90) Current Outpatient Medications Medication Sig Dispense Refill OMEPRAZOLE ORAL Take by mouth. triamcinolone acetonide (KENALOG) 0.1 % cream Apply 1 application to affected area three times daily. Apply sparingly to area for rash/itching. (Patient not taking: Reported on 06/28/2023) 80 g 0 No current facility-administered medications for this visit. No past surgical history on file. FAMILY HISTORY Problem Relation Age of Onset Alcohol/Drug Father Alcohol/Drug Paternal Grandfather Asthma Maternal Grandfather Cancer Maternal Grandfather throat Prostate Cancer Maternal Grandfather Diabetes Mother Diabetes Maternal Grandmother Diabetes Maternal Aunt other (lymphoma [Other]) Unknown great uncle GI Sister crohn's Lipids Father Hypertension Father Seizures Father Stroke Maternal Grandfather Social History Tobacco Use Smoking status: Former Types: Cigarettes Smokeless tobacco: Never Substance Use Topics Alcohol use: No Drug use: No Objective BP 122/80 Pulse 67 Temp 36.3 C (97.3 F) (Tympanic) Resp 16 Wt 88.7 kg (195 lb 8.8 oz) SpO2 100% Physical Exam Vitals reviewed. Constitutional: Appearance: Normal appearance. HENT: Head: Normocephalic and atraumatic. Musculoskeletal: Comments: Patient has ttp on the distal ulna dorsally with small abrasion, some swelling and bruising.Patient has full flexion and extension as well as pronation and supination. He does have pain in the wrist with range of motion of the fingers. Normal hand grasp strength. Radial pulse 2+. Normal distal sensation. Skin: General: Skin is warm and dry. Neurological: Mental Status: He is alert. Assessment and Plan ASSESSMENT/PLAN: 1. Wrist injury, right, initial encounter - ICD9: 959.3, ICD10: S69.91XA Patient xrays show no fractures of the wrist. There are some radiopaque densities over the mcp of the Right thumb. He had a laceration remotely over that area remotely. Likely retained foreign body. He has not had any issues with it. Recommended rest, ice, ibuprofen for his wrist. If not improving in 2 weeks follow-up with PCP. Patient agreeable. - XR WRIST INJURY 4V PA/LAT/OBL/SCAPH RIGHT Sol Bourgeois PA-C documented in this encounter [facility] 06-28-2023 History of Present illness Narrative Radiology Service Progress Note PATIENT NAME: Ryan Matta DATE OF SERVICE: June 28, 2023 TIME: 10:12 AM PATIENT IDENTITY VERIFICATION COMPLETED USING TWO (2) IDENTIFIERS: Name and Date of confirmed by patient verbally. FALL SCREENING: Has the patient had 2 falls in the last year or 1 fall with injury or currently using an Ambulatory Assistive Device (Walker, Cane, Wheelchair, Crutches, etc.)? No PATIENT GENDER DATA: Male PATIENT RELEVANT IMPLANT DATA REVIEWED: Not Applicable PATIENT PRESENTS WITH AN IMPLANTABLE OR ATTACHED SUPERVISOR FRAMING MILL: No RADIOLOGY DEPARTMENT: General X-ray: Exam(s) Completed: Upper Extremity X-Ray(s): Wrist, right PERIPHERAL IV DATA: Not applicable SIGNED BY: RT Luisana(Norma) June 28, 2023 10:12 AM documented in this encounter [facility] 06-28-2023 Note HNO ID: [id number] Author: ASHLEY KYLE RT(R) Service: Radiology Author Type: Technologist Type: Progress Notes Filed: 06/28/2023 10:17 Note Text: Radiology Service Progress Note PATIENT NAME: Ryan Matta DATE OF SERVICE: June 28, 2023 TIME: 10:12 AM PATIENT IDENTITY VERIFICATION COMPLETED USING TWO (2) IDENTIFIERS: Name and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
[2024-08-05] MEDS: Famotidine 200 MG/20 ML MDV 20 MG in 0.9% Normal Saline (Pres. free 8 ML 300 MG IV (23:32)
[2024-08-05] MEDS: MethylPREDNISolone 125 MG/2 ML Vial IV (23:32)
[2024-08-05 23:34] VITALS: BP 138/98; BP 139/88; PULSE 78; PULSE 80; RESP 18; TEMP 36.8; O2SAT 98; BMI 29.2
[2024-08-05 23:35] VITALS: BP 139/88; PULSE 93; RESP 20; TEMP 35.7; O2SAT 100; BMI 31.1
[2024-08-06 00:11] VITALS: BP 130/78; PULSE 80; RESP 18; O2SAT 96
[2024-08-06 01:00] VITALS: BP 131/88; PULSE 82; RESP 20; TEMP 36.5; O2SAT 97
== END 2024-08-06 01:04 | disposition home or self-care (01) ==
PROVIDERS: Emergency Provider Emergency Medicine; Visit Provider Emergency Medicine
DX: T78.1XXA Other adverse food reactions, not elsewhere classified, initial encounter (principal); J45.909 Unspecified asthma, uncomplicated; Z91.010 Allergy to peanuts; R07.0 Pain in throat
CPT/HCPCS: 99282; A4216